=== PATIENT | female | born 1985 | race Caucasian/White ===

== ENCOUNTER 2022-09-11 04:26 | Day surgery (SDC) | payer OTHER ==
[2022-09-10 10:34] VITALS: BMI 25.7
[2022-09-11 08:08] LABS: BASO % 0.9 % (0-2.0); EOS % 3.6 % (0-4.5); HEMATOCRIT 39.1 % (32.4-45.2); HEMOGLOBIN 12.9 GM/dL (10.7-15.3); LYMPH % 44.2 % (8-40); MCH 29.7 pg (25.7-33.7); MEAN PLT VOLUME 8.1 fl (7.5-11.1); MONO % 5.2 % (3.8-10.2); NEUT % 46.1 % (42.8-82.8); PLATELET COUNT 350 10^3/uL (134-434); RBC 4.35 M/mm3 (3.60-5.2); RDW 12.8 % (11.6-15.6); WHITE BLOOD COUNT 7.2 K/mm3 (4.0-10.0)
[2022-09-11] MEDS ORDERED: oxyCODONE HCL 5 MG TABLET PO PRN (08:25)
[2022-09-11] MEDS ORDERED: PROMETHAZINE HCL 25 MG/1 ML VIAL IVPB PRN (08:25)
[2022-09-11] MEDS ORDERED: ONDANSETRON 4 MG/2 ML VIAL IVPUSH PRN (08:25)
[2022-09-11] MEDS ORDERED: LACTATED RINGERS SOLUTION 1,000 ML IV SCH (08:30)
[2022-09-11] MEDS ORDERED: MIDAZOLAM HCL 2 MG/2 ML SINGLE DOSE VIAL ONE (08:37)
[2022-09-11] MEDS ORDERED: PROPOFOL 20 ML ONE (08:37)
[2022-09-11] MEDS ORDERED: LIDOCAINE HCL/PF 2% SDV 5ML VIAL ONE (08:38)
[2022-09-11] MEDS ORDERED: KETOROLAC TROMETHAMINE 30 MG/1 ML VIAL ONE (09:07)
[2022-09-11 10:41] VITALS: RESP 18
[2022-09-11 11:02] VITALS: BP 120/64; PULSE 52; TEMP 97.3
== END 2022-09-11 11:06 | disposition home or self-care (01) ==
LOC: JASU-SURG 04:26
PROVIDERS: ATTEND Obstetrics & Gynecology
PROC: 0UBC7ZX Excision of Cervix, Via Natural or Artificial Opening, Diagnostic (ICD-10-PCS; principal; 2022-09-11 09:00)
DX: N87.1 Moderate cervical dysplasia (principal)
CPT/HCPCS: 36415; 81025; 84703; 85025; 86850; 86900; 86901; 88305-TC; 88307-TC; 88341-TC; 88342-TC; 94760

== ENCOUNTER 2022-11-13 04:24 | Day surgery (SDC) | payer OTHER ==
[2022-11-11 15:29] VITALS: BMI 25.7
[2022-11-13] MEDS ORDERED: PROPOFOL 20 ML ONE (11:23)
[2022-11-13] MEDS ORDERED: MIDAZOLAM HCL 2 MG/2 ML SINGLE DOSE VIAL ONE (11:23)
[2022-11-13] MEDS ORDERED: IODINE/POTASSIUM IODIDE 5%/10% 14 ML BOTTLE NR ONE (11:40)
[2022-11-13] MEDS ORDERED: FERRIC SUBSULFATE 500 ML BOTTLE TP ONE (11:49)
[2022-11-13] MEDS ORDERED: IBUPROFEN 800 MG/8 ML IJ IVPB PRN (12:07)
[2022-11-13] MEDS ORDERED: ONDANSETRON 4 MG/2 ML VIAL IVPUSH PRN (12:07)
[2022-11-13] MEDS ORDERED: oxyCODONE HCL 5 MG TABLET PO PRN (12:07)
[2022-11-13] MEDS ORDERED: LACTATED RINGERS SOLUTION 1,000 ML IV SCH (12:15)
[2022-11-13 13:26] VITALS: RESP 20; TEMP 97.1
[2022-11-13 13:58] VITALS: BP 99/53; PULSE 52
== END 2022-11-13 13:59 | disposition home or self-care (01) ==
LOC: JASU-SURG 04:24
PROVIDERS: ATTEND Obstetrics & Gynecology
PROC: 0UBC7ZX Excision of Cervix, Via Natural or Artificial Opening, Diagnostic (ICD-10-PCS; principal; 2022-11-13 11:00)
DX: R87.612 Low grade squamous intraepithelial lesion on cytologic smear of cervix (LGSIL) (principal); N72 Inflammatory disease of cervix uteri
CPT/HCPCS: 81025; 88305-TC; 88307-TC; 88341-TC; 88342-TC; 94760